=== PATIENT | female | born 1945 | race Caucasian/White ===

== ENCOUNTER 2018-01-06 14:40 | Outpatient (RCR) | payer MEDICARE, OTHER ==
[~2018-01-06 14:40] MED LIST: ASPIR 8181 MG; CRESTOR10 MG PO; GABAPENTIN300 MG PO; GLIPIZIDE5 MG PO; HYDROCHLOROTHIA25 MG; LISINOPRIL2.5 MG; LOSARTAN POTASS25 MG; MELOXICAM7.5 MG PO; METFORMIN HCL500 MG PO; OXYBUTYNIN CHLOR5 M1; TRULICITY SQ; VESICARE5 MG; [UNRECOGNIZED DRUG - REMARK]
== END 2018-02-05 ==
LOC: RESP 14:40
PROVIDERS: ATTEND Internal Medicine Pulmonary Disease
DX: J44.9 Chronic obstructive pulmonary disease, unspecified (principal)
CPT/HCPCS: G0238; G0424

== ENCOUNTER 2021-01-26 13:36 | Inpatient (IN) | payer MEDICARE, OTHER ==
[~2021-01-26] VITALS: Ht 160 cm; Wt 106.1 kg
[2021-01-26 14:22] LABS: BASOPHILS # (AUTO) 0.1 (0.0-0.1); BASOPHILS % 0.3 % (0.0-1.0); EOSINOPHILS # (AUTO) 0.2 (0.0-0.4); EOSINOPHILS % 1.2 % (0.0-6.0); HEMATOCRIT 41.9 % (34.2-44.1); HEMOGLOBIN 13.8 g/dL (12.0-16.0); LYMPHOCYTES # (AUTO) 0.6 (1.0-3.2); LYMPHOCYTES % 4.2 % (18.0-39.1); MEAN CORPUSCULAR HEMOGLOBIN 28.3 pg (28-32); MEAN CORPUSCULAR HGB CONC 32.9 g/dL (31-35); MONOCYTES # (AUTO) 0.5 (0.2-0.8); MONOCYTES % 3.3 % (4.4-11.3); NEUTROPHILS # (AUTO) 13.3 (2.1-6.9); NEUTROPHILS % 90.4 % (38.7-80.0); PLATELET COUNT 253 x10e3/uL (140-360); RED BLOOD COUNT 4.87 x10e6/uL (3.6-5.1); RED CELL DISTRIBUTION WIDTH 14.7 % (11.7-14.4)
[2021-01-26 14:37] LABS: INR 0.93; PROTHROMBIN TIME 12.7 seconds (11.9-14.5)
[2021-01-26 14:38] LABS: PARTIAL THROMBOPLASTIN TIME 29.4 seconds (23.8-35.5)
[2021-01-26 14:56] LABS: ALANINE AMINOTRANSFERASE 14 IU/L (0-55); ALBUMIN 3.6 g/dL (3.5-5.0); ALKALINE PHOSPHATASE 77 IU/L (40-150); ANION GAP 17.8 mmol/L (8-16); BLOOD UREA NITROGEN 10 mg/dL (7-26); BUN/CREATININE RATIO 13 (6-25); CALCIUM 9.6 mg/dL (8.4-10.2); CARBON DIOXIDE 24 mmol/L (22-29); CHLORIDE 97 mmol/L (98-107); CREATINE KINASE 16 IU/L (29-168); CREATININE, SERUM 0.79 mg/dL (0.57-1.11); EST GLOMERULAR FILTRATION RATE 71 ML/MIN (60-); GLUCOSE 164 mg/dL (74-118); MAGNESIUM 1.5 MG/DL (1.3-2.1); POTASSIUM 3.8 mmol/L (3.5-5.1); SODIUM 135 mmol/L (136-145)
[2021-01-26 15:23] LABS: B-TYPE NATRIURETIC PEPTIDE2 25.7 pg/mL (0-100)
[2021-01-26 15:27] LABS: ABG HCO3 28 mmol/L (22-26); ABG PCO2 38 mmHg (35-45); ABG PH 7.47 (7.35-7.45); ABG PO2 59 mmHg (80-105); ABG TCO2 29
[2021-01-26] MEDS ORDERED: [UNRECOGNIZED DRUG - OTHER] PEG (15:38)
[2021-01-26] MEDS ORDERED: [UNRECOGNIZED DRUG - OTHER] PEG (15:38)
[2021-01-26] MEDS ORDERED: SYMBICORT 16010.2 GM INH (15:38)
[2021-01-26] MEDS ORDERED: DICYCLOMINE HCL10 MG PO (15:38)
[2021-01-26] MEDS ORDERED: ENALAPRIL MALE2.5 MG PO (15:38)
[2021-01-26] MEDS ORDERED: [UNRECOGNIZED DRUG - OTHER] PO (15:38)
[2021-01-26 15:53] LABS: CLARITY,URINE CLEAR (CLEAR); COLOR,URINE YELLOW (YELLOW); KETONES,URINE 1+ (NEGATIVE); LEUKOCYTE ESTERASE ,URINE NEGATIVE (NEGATIVE); NITRITE,URINE NEGATIVE (NEGATIVE); PROTEIN,URINE DIPSTICK NEGATIVE (NEGATIVE); URINE UROBILINOGEN 0.2 mg/dL (0.2 - 1)
[2021-01-26 16:12] LABS: BACTERIA,URINE FEW /HPF; EPITHELIAL CELLS,URINE FEW /LPF; MUCUS,URINE MODERATE (RARE); RBC,URINE 0-5 /HPF (0-5)
[2021-01-26] MEDS ORDERED: SODIUM CHLORIDE 0.9% 500ML 500 ML IV ONE (16:15)
[2021-01-26] MEDS ORDERED: CASIRIVIMAB/IMDEVIMAB 10 ML in SODIUM CHLORIDE 0.9% 100 ML IV ONE (16:15)
[2021-01-26] MEDS ORDERED: ASPIRIN 81 MG CHEW TAB ONE (17:54)
[2021-01-26] MEDS ORDERED: ASPIRIN 81 MG CHEW TAB PO ONE (18:00)
[2021-01-26] MEDS ORDERED: DEXTROSE 50% SYRINGE 50 ML IV PRN (18:30)
[2021-01-26] MEDS ORDERED: ONDANSETRON HCL INJ 2MG/ML 2ML 2 MG/ML VIAL IV PRN (18:30)
[2021-01-26] MEDS: CEFTRIAXONE 1 GM in SODIUM CHLORIDE 0.9% 50ML 50 ML IV SCH (18:54)
[2021-01-26] MEDS ORDERED: ACETAMINOPHEN 325 MG TAB PO PRN (22:15)
[2021-01-26] MEDS: FAMOTIDINE 20 MG/2 ML VIAL IV SCH (22:54)
[2021-01-26] MEDS: INSULIN LISPRO 100 UNIT/1 ML 3ML VIAL SQ SCH (22:58)
[2021-01-27] VITALS (10 sets, daily range): BP systolic 112–125; BP diastolic 42–55
[2021-01-27 06:10] LABS: BASOPHILS % 0.3 % (0.0-1.0); EOSINOPHILS % 0.1 % (0.0-6.0); HEMATOCRIT 39.2 % (34.2-44.1); HEMOGLOBIN 12.7 g/dL (12.0-16.0); LYMPHOCYTES # (AUTO) 0.8 (1.0-3.2); LYMPHOCYTES % 7.3 % (18.0-39.1); MEAN CORPUSCULAR HEMOGLOBIN 28.3 pg (28-32); MEAN CORPUSCULAR HGB CONC 32.4 g/dL (31-35); MEAN CORPUSCULAR VOLUME 87.3 fL (81-99); MONOCYTES # (AUTO) 0.5 (0.2-0.8); MONOCYTES % 4.5 % (4.4-11.3); NEUTROPHILS # (AUTO) 9.4 (2.1-6.9); NEUTROPHILS % 87.4 % (38.7-80.0); PLATELET COUNT 217 x10e3/uL (140-360); RED BLOOD COUNT 4.49 x10e6/uL (3.6-5.1); RED CELL DISTRIBUTION WIDTH 14.8 % (11.7-14.4)
[2021-01-27 06:35] LABS: ALBUMIN 3.1 g/dL (3.5-5.0); ALBUMIN/GLOBULIN RATIO 0.9 (0.8-2.0); ANION GAP 15.3 mmol/L (8-16); CALCIUM 9.1 mg/dL (8.4-10.2); CHOL/HDL RATIO 2.8 (3.0-3.6); CREATININE, SERUM 0.79 mg/dL (0.57-1.11); POTASSIUM 3.3 mmol/L (3.5-5.1)
[2021-01-27 06:41] LABS: CREATINE KINASE 27 IU/L (29-168)
[2021-01-27] MEDS: ASPIRIN 81 MG ENTERIC COATED PO SCH (10:23)
[2021-01-27] MEDS: CEFTRIAXONE 1 GM in SODIUM CHLORIDE 0.9% 50ML 50 ML IV SCH (10:23)
[2021-01-27] MEDS: FAMOTIDINE 20 MG/2 ML VIAL IV SCH ×2 (10:23→21:49)
[2021-01-27] MEDS: INSULIN LISPRO 100 UNIT/1 ML 3ML VIAL SQ SCH ×4 (11:02→21:00)
[2021-01-27] MEDS ORDERED: POTASSIUM CHLORIDE 10MEQ EA PO NR (12:45)
[2021-01-27] MEDS: ZINC SULFATE 220 MG CAP PO SCH (13:46)
[2021-01-27] MEDS ORDERED: REMDESIVIR 200MG/NS 100ML 200 MG in SODIUM CHLORIDE 0.9% 100 ML 100 ML IV ONE (14:00)
[2021-01-27] MEDS: BUDESONIDE/FORMOTEROL 160/4.5MCG INHALER INH SCH (17:00)
[2021-01-27] MEDS ORDERED: ENOXAPARIN SOD INJ 40 MG/0.4 ML SYR SC SCH (17:00)
[2021-01-27] MEDS: GLIPIZIDE 5 MG TAB PO SCH (17:46)
[2021-01-27] MEDS: METFORMIN HCL 500 MG TAB PO SCH (17:51)
[2021-01-27] MEDS ORDERED: SIMVASTATIN 40 MG TAB PO SCH (21:00)
[2021-01-28] VITALS: BP 111/57
[2021-01-28 04:00] VITALS: BP 140/70
[2021-01-28 05:35] LABS: BASOPHILS % 0.5 % (0.0-1.0); EOSINOPHILS % 0.2 % (0.0-6.0); HEMATOCRIT 40.6 % (34.2-44.1); HEMOGLOBIN 13.5 g/dL (12.0-16.0); LYMPHOCYTES # (AUTO) 1.3 (1.0-3.2); LYMPHOCYTES % 22.5 % (18.0-39.1); MEAN CORPUSCULAR HEMOGLOBIN 28.8 pg (28-32); MEAN CORPUSCULAR HGB CONC 33.3 g/dL (31-35); MEAN CORPUSCULAR VOLUME 86.6 fL (81-99); MONOCYTES # (AUTO) 0.5 (0.2-0.8); MONOCYTES % 8.2 % (4.4-11.3); NEUTROPHILS % 68.3 % (38.7-80.0); PLATELET COUNT 223 x10e3/uL (140-360); RED BLOOD COUNT 4.69 x10e6/uL (3.6-5.1); RED CELL DISTRIBUTION WIDTH 14.7 % (11.7-14.4)
[2021-01-28 06:17] LABS: ALBUMIN 3.1 g/dL (3.5-5.0); ALBUMIN/GLOBULIN RATIO 0.9 (0.8-2.0); ANION GAP 19.4 mmol/L (8-16); CREATININE, SERUM 0.72 mg/dL (0.57-1.11); POTASSIUM 3.4 mmol/L (3.5-5.1)
[2021-01-28] MEDS: INSULIN LISPRO 100 UNIT/1 ML 3ML VIAL SQ SCH ×3 (07:30→16:17)
[2021-01-28 08:13] VITALS: BP 116/59
[2021-01-28] MEDS: METFORMIN HCL 500 MG TAB PO SCH (08:19)
[2021-01-28] MEDS: ZINC SULFATE 220 MG CAP PO SCH (08:19)
[2021-01-28] MEDS: FAMOTIDINE 20 MG/2 ML VIAL IV SCH (08:19)
[2021-01-28] MEDS: ASPIRIN 81 MG ENTERIC COATED PO SCH (08:19)
[2021-01-28] MEDS: GLIPIZIDE 5 MG TAB PO SCH (08:19)
[2021-01-28] MEDS: CEFTRIAXONE 1 GM in SODIUM CHLORIDE 0.9% 50ML 50 ML IV SCH (08:53)
[2021-01-28] MEDS ORDERED: ASPIRIN 81 MG CHEW TAB PO SCH (09:00)
[2021-01-28] MEDS ORDERED: OXYBUTYNIN CHLORIDE XL 5 MG TAB PO SCH (09:00)
[2021-01-28] MEDS: BUDESONIDE/FORMOTEROL 160/4.5MCG INHALER INH SCH (10:57)
[2021-01-28 10:58] VITALS: BP 116/59
[2021-01-28 12:01] VITALS: BP 122/60
[2021-01-28] MEDS ORDERED: REMDESIVIR 100MG/NS 100ML 100 MG in SODIUM CHLORIDE 0.9% 100 ML 100 ML IV SCH (14:00)
[2021-01-28] MEDS ORDERED: POTASSIUM CHLORIDE 10MEQ EA PO ONE (15:00)
== END 2021-01-28 16:21 | disposition home or self-care (01) | DRG 177 ==
LOC: ER 13:48 → ERHOLD 18:29 → MED/SURG3 23:36
PROVIDERS: ADMIT Internal Medicine; ATTEND Internal Medicine
PROC: XW033H6 Introduction of Other New Technology Monoclonal Antibody into Peripheral Vein, Percutaneous Approach, New Technology Group 6 (ICD-10-PCS; 2021-01-26)
PROC: XW033E5 Introduction of Remdesivir Anti-infective into Peripheral Vein, Percutaneous Approach, New Technology Group 5 (ICD-10-PCS; principal; 2021-01-27)
DX: U07.1 COVID-19 (principal); J12.82 Pneumonia due to coronavirus disease 2019; G93.41 Metabolic encephalopathy; E11.9 Type 2 diabetes mellitus without complications; J44.9 Chronic obstructive pulmonary disease, unspecified; E78.5 Hyperlipidemia, unspecified; M19.90 Unspecified osteoarthritis, unspecified site; E87.6 Hypokalemia; Z90.49 Acquired absence of other specified parts of digestive tract; Z88.2 Allergy status to sulfonamides; Z88.8 Allergy status to other drugs, medicaments and biological substances
CPT/HCPCS: 36415; 36600; 70450; 70551; 71045; 80053; 80061; 81001; 82140; 82550; 82553; 82805; 82948; 83735; 83880; 84484; 85025; 85610; 85730; 87086; 93005; 93306; 93880; 94664; 96372; 99251; 99284; J0456; J0696; J1650; J7050; U0002

== ENCOUNTER 2021-02-25 14:35 | Emergency (ER) | payer MEDICARE, OTHER ==
[~2021-02-25] VITALS: Ht 160 cm; Wt 106.1 kg
[~2021-02-25 14:35] MED LIST changes: +DICYCLOMINE HCL10 MG PO; +ENALAPRIL MALE2.5 MG PO; +SYMBICORT 16010.2 GM INH; +[UNRECOGNIZED DRUG - OTHER] PEG; +[UNRECOGNIZED DRUG - OTHER] PEG; +[UNRECOGNIZED DRUG - OTHER] PO
[2021-02-25] MEDS ORDERED: SODIUM CHLORIDE 0.9% 1000ML 1,000 ML IV STA (15:14)
[2021-02-25] MEDS ORDERED: ALBUTEROL SULFATE HFA 8GM INHALATION AEROSOL INH PRN (15:15)
[2021-02-25] MEDS ORDERED: ASPIRIN 81 MG CHEW TAB PO ONE (15:15)
[2021-02-25 15:34] LABS: BASOPHILS # (AUTO) 0.1 (0.0-0.1); BASOPHILS % 0.3 % (0.0-1.0); EOSINOPHILS # (AUTO) 0.2 (0.0-0.4); EOSINOPHILS % 1.1 % (0.0-6.0); HEMATOCRIT 42.5 % (34.2-44.1); HEMOGLOBIN 13.7 g/dL (12.0-16.0); LYMPHOCYTES # (AUTO) 2.1 (1.0-3.2); LYMPHOCYTES % 11.7 % (18.0-39.1); MEAN CORPUSCULAR HEMOGLOBIN 27.9 pg (28-32); MEAN CORPUSCULAR HGB CONC 32.2 g/dL (31-35); MEAN CORPUSCULAR VOLUME 86.6 fL (81-99); MONOCYTES # (AUTO) 0.7 (0.2-0.8); NEUTROPHILS # (AUTO) 14.4 (2.1-6.9); NEUTROPHILS % 82.3 % (38.7-80.0); PLATELET COUNT 280 x10e3/uL (140-360); RED BLOOD COUNT 4.91 x10e6/uL (3.6-5.1)
[2021-02-25 15:40] LABS: INR 0.91; PROTHROMBIN TIME 12.4 seconds (11.9-14.5)
[2021-02-25 15:41] LABS: PARTIAL THROMBOPLASTIN TIME 27.5 seconds (23.8-35.5)
[2021-02-25 15:49] LABS: ALBUMIN 3.3 g/dL (3.5-5.0); ALBUMIN/GLOBULIN RATIO 0.9 (0.8-2.0); CALCIUM 9.4 mg/dL (8.4-10.2); CREATININE, SERUM 0.75 mg/dL (0.57-1.11)
[2021-02-25 15:56] LABS: CREATINE KINASE MB 0.4 ng/mL (0-5.0)
[2021-02-25 16:08] LABS: FREE THYROXINE INDEX 2.2822 (1.4-3.8); THYROID STIMULATING HORMONE 1.705 uIU/mL (0.350-4.940)
[2021-02-25] MEDS ORDERED: CEFTRIAXONE 1 GM VIAL IV ONE (20:00)
[2021-02-25] MEDS ORDERED: CEFTRIAXONE 1 GM in SODIUM CHLORIDE 0.9% 50ML 50 ML IV ONE (20:30)
[2021-02-25 21:31] LABS: CLARITY,URINE SL CLOUDY (CLEAR); COLOR,URINE STRAW (YELLOW); KETONES,URINE 1+ (NEGATIVE); LEUKOCYTE ESTERASE ,URINE NEGATIVE (NEGATIVE); NITRITE,URINE NEGATIVE (NEGATIVE); PROTEIN,URINE DIPSTICK TRACE (NEGATIVE); URINE UROBILINOGEN 0.2 mg/dL (0.2 - 1)
[2021-02-25 21:42] LABS: BACTERIA,URINE FEW /HPF; EPITHELIAL CELLS,URINE FEW /LPF; RBC,URINE 0-5 /HPF (0-5); WBC,URINE (MAN) 0-5 /HPF (0-5)
== END 2021-02-25 22:30 | disposition home or self-care (01) ==
LOC: ER 15:20
DX: R41.82 Altered mental status, unspecified (principal); D72.829 Elevated white blood cell count, unspecified; R05 Cough; J18.9 Pneumonia, unspecified organism; E11.65 Type 2 diabetes mellitus with hyperglycemia; E78.5 Hyperlipidemia, unspecified; J44.9 Chronic obstructive pulmonary disease, unspecified
CPT/HCPCS: 36415; 70450; 71045; 80053; 81001; 82550; 82553; 83880; 84436; 84443; 84479; 84484; 85025; 85610; 85730; 87086; 93005; 99284; J0696; J7030

== ENCOUNTER 2021-05-15 16:58 | Inpatient (IN) | payer MEDICARE, OTHER ==
[~2021-05-15] VITALS: Ht 160 cm; Wt 106.1 kg
[2021-05-15 17:25] LABS: BASOPHILS # (AUTO) 0.1 (0.0-0.1); BASOPHILS % 0.7 % (0.0-1.0); EOSINOPHILS # (AUTO) 0.3 (0.0-0.4); EOSINOPHILS % 3.1 % (0.0-6.0); HEMATOCRIT 44.3 % (34.2-44.1); HEMOGLOBIN 14.3 g/dL (12.0-16.0); LYMPHOCYTES # (AUTO) 2.5 (1.0-3.2); LYMPHOCYTES % 23.3 % (18.0-39.1); MEAN CORPUSCULAR HEMOGLOBIN 28.6 pg (28-32); MEAN CORPUSCULAR HGB CONC 32.3 g/dL (31-35); MEAN CORPUSCULAR VOLUME 88.6 fL (81-99); MONOCYTES # (AUTO) 0.7 (0.2-0.8); MONOCYTES % 6.4 % (4.4-11.3); NEUTROPHILS % 66.3 % (38.7-80.0); PLATELET COUNT 302 x10e3/uL (140-360); RED CELL DISTRIBUTION WIDTH 14.6 % (11.7-14.4)
[2021-05-15 17:38] LABS: INR 0.81; PROTHROMBIN TIME 11.8 seconds (11.9-14.5)
[2021-05-15 17:39] LABS: PARTIAL THROMBOPLASTIN TIME 28.3 seconds (23.8-35.5)
[2021-05-15 17:48] LABS: ALBUMIN 3.8 g/dL (3.5-5.0); ALBUMIN/GLOBULIN RATIO 1.1 (0.8-2.0); ANION GAP 15.9 mmol/L (8-16); CALCIUM 9.8 mg/dL (8.4-10.2); CREATININE, SERUM 0.8 mg/dL (0.57-1.11); POTASSIUM 3.9 mmol/L (3.5-5.1)
[2021-05-15 17:54] LABS: CREATINE KINASE MB 0.7 ng/mL (0-5.0)
[2021-05-15] MEDS ORDERED: ASPIRIN 81 MG CHEW TAB PO ONE (19:00)
[2021-05-15] MEDS ORDERED: ONDANSETRON HCL INJ 2MG/ML 2ML 2 MG/ML VIAL IV PRN (19:15)
[2021-05-15] MEDS ORDERED: DEXTROSE 50% SYRINGE 50 ML IV PRN (19:15)
[2021-05-15] MEDS ORDERED: SODIUM CHLORIDE FLUSH 10 ML SYR INJ PRN (19:15)
[2021-05-15 20:26] VITALS: BP 135/53
[2021-05-15] MEDS: INSULIN REGULAR, HUMAN 100 UNIT/1 ML SQ SCH (21:00)
[2021-05-15 22:08] VITALS: BP 135/53
[2021-05-16] VITALS (8 sets, daily range): BP systolic 105–160; BP diastolic 45–88
[2021-05-16 02:04] LABS: CREATINE KINASE MB 0.7 ng/mL (0-5.0)
[2021-05-16] MEDS ORDERED: ACETAMINOPHEN 325 MG TAB PO PRN (06:00)
[2021-05-16 06:12] LABS: BASOPHILS # (AUTO) 0.1 (0.0-0.1); BASOPHILS % 0.7 % (0.0-1.0); EOSINOPHILS # (AUTO) 0.2 (0.0-0.4); HEMATOCRIT 43.6 % (34.2-44.1); HEMOGLOBIN 14.2 g/dL (12.0-16.0); MEAN CORPUSCULAR HEMOGLOBIN 28.5 pg (28-32); MEAN CORPUSCULAR HGB CONC 32.6 g/dL (31-35); MEAN CORPUSCULAR VOLUME 87.4 fL (81-99); MONOCYTES # (AUTO) 0.6 (0.2-0.8); MONOCYTES % 5.6 % (4.4-11.3); NEUTROPHILS # (AUTO) 7.4 (2.1-6.9); NEUTROPHILS % 72.3 % (38.7-80.0); PLATELET COUNT 236 x10e3/uL (140-360); RED BLOOD COUNT 4.99 x10e6/uL (3.6-5.1); RED CELL DISTRIBUTION WIDTH 14.3 % (11.7-14.4)
[2021-05-16 07:16] LABS: ALBUMIN 3.8 g/dL (3.5-5.0); ALBUMIN/GLOBULIN RATIO 1.2 (0.8-2.0); ANION GAP 17.2 mmol/L (8-16); CALCIUM 9.4 mg/dL (8.4-10.2); CREATININE, SERUM 0.82 mg/dL (0.57-1.11); POTASSIUM 4.2 mmol/L (3.5-5.1)
[2021-05-16] MEDS: ASPIRIN 325 MG TAB EC PO SCH (08:47)
[2021-05-16] MEDS: INSULIN REGULAR, HUMAN 100 UNIT/1 ML SQ SCH ×4 (08:53→21:00)
[2021-05-16] MEDS: [UNRECOGNIZED DRUG - OTHER] PO SCH (09:00)
[2021-05-16] MEDS: ALA PO SCH (09:00)
[2021-05-16] MEDS: GLIPIZIDE 5 MG TAB PO SCH ×2 (09:00→16:06)
[2021-05-16] MEDS: [UNRECOGNIZED DRUG - OTHER] PEG SCH (09:00)
[2021-05-16] MEDS: MILK THISTLE PO SCH (09:00)
[2021-05-16] MEDS: [UNRECOGNIZED DRUG - OTHER] PEG SCH (09:00)
[2021-05-16] MEDS ORDERED: ASPIRIN 81 MG CHEW TAB PO SCH (09:00)
[2021-05-16] MEDS: NAC PO SCH (09:00)
[2021-05-16 09:16] LABS: CREATINE KINASE MB 0.6 ng/mL (0-5.0)
[2021-05-16] MEDS ORDERED: HYDRALAZINE HCL 20 MG/ML VIAL IV PRN (09:45)
[2021-05-16] MEDS ORDERED: GABAPENTIN 300 MG CAP PO SCH (10:00)
[2021-05-16] MEDS: DICYCLOMINE HCL 10 MG CAP PO SCH ×2 (10:27→16:06)
[2021-05-16] MEDS: ENALAPRIL MALEATE 5 MG TAB PO SCH (10:27)
[2021-05-16] MEDS: OXYBUTYNIN CHLORIDE XL 5 MG TAB PO SCH (10:28)
[2021-05-16] MEDS: HYDROCHLOROTHIAZIDE 25 MG TAB PO SCH (10:28)
[2021-05-16] MEDS ORDERED: METFORMIN HCL 500 MG TAB PO SCH (11:00)
[2021-05-16] MEDS: BUDESONIDE/FORMOTEROL 160/4.5MCG INHALER INH SCH ×2 (14:45→20:25)
[2021-05-16] MEDS ORDERED: SIMVASTATIN 20 MG TAB PO SCH (21:00)
[2021-05-16] MEDS ORDERED: ATORVASTATIN 40 MG TAB PO SCH (21:00)
[2021-05-17] VITALS: BP 122/42
[2021-05-17 04:00] VITALS: BP_SYST 125; BP_SYST 134; BP_DIAS 74
[2021-05-17] MEDS: BUDESONIDE/FORMOTEROL 160/4.5MCG INHALER INH SCH (07:30)
[2021-05-17 07:46] VITALS: BP 144/70
[2021-05-17 08:04] VITALS: BP 144/70
[2021-05-17] MEDS ORDERED: ONDANSETRON HCL 4 MG ORAL DISINTEGRATING TAB PO PRN (08:30)
[2021-05-17] MEDS: [UNRECOGNIZED DRUG - OTHER] PEG SCH (09:00)
[2021-05-17] MEDS: ALA PO SCH (09:00)
[2021-05-17] MEDS: [UNRECOGNIZED DRUG - OTHER] PEG SCH (09:00)
[2021-05-17] MEDS: [UNRECOGNIZED DRUG - OTHER] PO SCH (09:00)
[2021-05-17] MEDS: MILK THISTLE PO SCH (09:00)
[2021-05-17] MEDS: NAC PO SCH (09:00)
[2021-05-17] MEDS: DICYCLOMINE HCL 10 MG CAP PO SCH (09:30)
[2021-05-17] MEDS: HYDROCHLOROTHIAZIDE 25 MG TAB PO SCH (09:30)
[2021-05-17] MEDS: OXYBUTYNIN CHLORIDE XL 5 MG TAB PO SCH (09:30)
[2021-05-17] MEDS: ENALAPRIL MALEATE 5 MG TAB PO SCH (09:30)
[2021-05-17] MEDS: ASPIRIN 325 MG TAB EC PO SCH (09:30)
[2021-05-17] MEDS: GLIPIZIDE 5 MG TAB PO SCH (09:30)
[2021-05-17] MEDS: INSULIN REGULAR, HUMAN 100 UNIT/1 ML SQ SCH ×2 (09:37→12:17)
[2021-05-17 11:11] VITALS: BP 133/69
== END 2021-05-17 13:35 | disposition home or self-care (01) | DRG 69 ==
LOC: ER 17:10 → ERHOLD 19:07 → MED/SURG 20:46
PROVIDERS: ADMIT Internal Medicine; ATTEND Internal Medicine
DX: G45.9 Transient cerebral ischemic attack, unspecified (principal); Z68.41 Body mass index [BMI] 40.0-44.9, adult; I10 Essential (primary) hypertension; J44.9 Chronic obstructive pulmonary disease, unspecified; E11.9 Type 2 diabetes mellitus without complications; E66.9 Obesity, unspecified; Z86.16 Personal history of COVID-19
CPT/HCPCS: 36415; 70450; 70544; 70547; 70551; 71045; 80053; 82550; 82553; 82948; 84484; 85025; 85610; 85730; 93005; 93306; 94664; 94799; 97139; 99284; J1817; U0002

== ENCOUNTER 2021-10-08 05:34 | Emergency (ER) | payer MEDICARE ==
[~2021-10-08] VITALS: Ht 160 cm; Wt 106.1 kg
[2021-10-08] MEDS ORDERED: FLEET ENEMA133 ML PR (05:52)
[2021-10-08] MEDS ORDERED: GOLYTELY SOLU4000 M1 PO (05:52)
== END 2021-10-08 06:01 | disposition home or self-care (01) ==
LOC: ER 05:43
DX: K59.00 Constipation, unspecified (principal); I10 Essential (primary) hypertension; E11.9 Type 2 diabetes mellitus without complications; E78.5 Hyperlipidemia, unspecified; J44.9 Chronic obstructive pulmonary disease, unspecified; J45.909 Unspecified asthma, uncomplicated
CPT/HCPCS: 99283

== ENCOUNTER 2021-12-07 01:04 | Inpatient (IN) | payer MEDICARE ==
[2021-12-07] VITALS (8 sets, daily range): BP systolic 122–132; BP diastolic 51–63
[~2021-12-07] VITALS: Ht 160 cm; Wt 106.1 kg
[~2021-12-07 01:04] MED LIST changes: +FLEET ENEMA133 ML PR; +GOLYTELY SOLU4000 M1 PO
[2021-12-07 01:50] LABS: CLARITY,URINE CLOUDY (CLEAR); COLOR,URINE YELLOW (YELLOW); KETONES,URINE 2+ (NEGATIVE); LEUKOCYTE ESTERASE ,URINE NEGATIVE (NEGATIVE); NITRITE,URINE NEGATIVE (NEGATIVE); PROTEIN,URINE DIPSTICK TRACE (NEGATIVE); URINE UROBILINOGEN 0.2 mg/dL (0.2 - 1)
[2021-12-07 02:14] LABS: BASOPHILS # (AUTO) 0.1 (0.0-0.1); BASOPHILS % 0.3 % (0.0-1.0); EOSINOPHILS # (AUTO) 0.5 (0.0-0.4); EOSINOPHILS % 2.9 % (0.0-6.0); HEMOGLOBIN 13.7 g/dL (12.0-16.0); LYMPHOCYTES # (AUTO) 0.4 (1.0-3.2); LYMPHOCYTES % 2.7 % (18.0-39.1); MEAN CORPUSCULAR HGB CONC 31.1 g/dL (31-35); MONOCYTES # (AUTO) 0.8 (0.2-0.8); NEUTROPHILS # (AUTO) 13.6 (2.1-6.9); NEUTROPHILS % 88.6 % (38.7-80.0); PLATELET COUNT 259 x10e3/uL (140-360); RED BLOOD COUNT 4.73 x10e6/uL (3.6-5.1); RED CELL DISTRIBUTION WIDTH 14.2 % (11.7-14.4)
[2021-12-07 02:14] LABS: BACTERIA,URINE MANY /HPF; EPITHELIAL CELLS,URINE FEW /LPF; WBC,URINE (MAN) 0-5 /HPF (0-5)
[2021-12-07 02:31] LABS: ALANINE AMINOTRANSFERASE 27 IU/L (0-55); ALBUMIN 3.5 g/dL (3.5-5.0); ALKALINE PHOSPHATASE 87 IU/L (40-150); BLOOD UREA NITROGEN 21 mg/dL (7-26); BUN/CREATININE RATIO 19 (6-25); CALCIUM 9.1 mg/dL (8.4-10.2); CARBON DIOXIDE 23 mmol/L (22-29); CREATINE KINASE 25 IU/L (29-168); GLUCOSE 305 mg/dL (74-118)
[2021-12-07 02:41] LABS: ANION GAP 17.3 mmol/L (8-16); CHLORIDE 101 mmol/L (98-107); POTASSIUM 4.3 mmol/L (3.5-5.1); SODIUM 139 mmol/L (136-145)
[2021-12-07] MEDS ORDERED: SODIUM CHLORIDE 0.9% 1000ML 1,000 ML IV STA (03:29)
[2021-12-07] MEDS ORDERED: ONDANSETRON HCL INJ 2MG/ML 2ML 2 MG/ML VIAL IV PRN (04:15)
[2021-12-07] MEDS ORDERED: Morphine 4mg INJECTION 4 MG/ML INJ IV PRN (04:15)
[2021-12-07] MEDS: SODIUM CHLORIDE 0.9% 1000ML 1,000 ML IV SCH ×3 (04:15→21:36)
[2021-12-07 10:12] LABS: CREATINE KINASE 59 IU/L (29-168)
[2021-12-07] MEDS ORDERED: DEXTROSE 50% SYRINGE 50 ML IV PRN (10:15)
[2021-12-07] MEDS ORDERED: HYDRALAZINE HCL 20 MG/ML VIAL IV PRN (10:30)
[2021-12-07] MEDS ORDERED: POLYETHYLENE GLYCOL 3350 17 GM PACK PO PRN (10:30)
[2021-12-07] MEDS ORDERED: Morphine 2mg Syringe 2 MG/ML SYR IV PRN (10:30)
[2021-12-07] MEDS: Vancomycin IV 1 GM in SODIUM CHLORIDE 0.9% 250ML 250 ML IV SCH ×2 (10:46→21:36)
[2021-12-07] MEDS: PANTOPRAZOLE SOD 40 MG TABEC PO SCH (10:46)
[2021-12-07] MEDS: ASPIRIN 81 MG ENTERIC COATED PO SCH (10:47)
[2021-12-07] MEDS: HYDROCHLOROTHIAZIDE 25 MG TAB PO SCH (10:47)
[2021-12-07] MEDS: OXYBUTYNIN CHLORIDE XL 5 MG TAB PO SCH (10:47)
[2021-12-07] MEDS: INSULIN LISPRO 100 UNIT/1 ML 3ML VIAL SQ SCH ×3 (11:30→21:31)
[2021-12-07] MEDS: ALBUTEROL/IPRATROPIUM 3 ML NEB NEB SCH ×2 (11:42→19:10)
[2021-12-07] MEDS ORDERED: SODIUM CHLORIDE 0.9% 500ML 500 ML IV ONE (12:00)
[2021-12-07] MEDS: ENALAPRIL MALEATE 5 MG TAB PO SCH (13:32)
[2021-12-07 15:47] LABS: CREATINE KINASE 118 IU/L (29-168)
[2021-12-07] MEDS: GABAPENTIN 300 MG CAP PO SCH ×2 (15:47→21:36)
[2021-12-07] MEDS: ENOXAPARIN SOD INJ 40 MG/0.4 ML SYR SC SCH (16:39)
[2021-12-07] MEDS: CRESTOR 10MG PO SCH (21:37)
[2021-12-08] VITALS (8 sets, daily range): BP systolic 115–139; BP diastolic 51–85
[2021-12-08] MEDS: ALBUTEROL/IPRATROPIUM 3 ML NEB NEB SCH ×4 (01:00→19:15)
[2021-12-08] MEDS: SODIUM CHLORIDE 0.9% 1000ML 1,000 ML IV SCH (04:51)
[2021-12-08 07:09] LABS: BASOPHILS # (AUTO) 0.1 (0.0-0.1); BASOPHILS % 0.8 % (0.0-1.0); EOSINOPHILS % 10.2 % (0.0-6.0); HEMATOCRIT 40.8 % (34.2-44.1); HEMOGLOBIN 12.6 g/dL (12.0-16.0); LYMPHOCYTES # (AUTO) 2.1 (1.0-3.2); LYMPHOCYTES % 20.5 % (18.0-39.1); MEAN CORPUSCULAR HEMOGLOBIN 29.1 pg (28-32); MEAN CORPUSCULAR HGB CONC 30.9 g/dL (31-35); MEAN CORPUSCULAR VOLUME 94.2 fL (81-99); MONOCYTES # (AUTO) 0.7 (0.2-0.8); MONOCYTES % 7.3 % (4.4-11.3); NEUTROPHILS # (AUTO) 6.1 (2.1-6.9); NEUTROPHILS % 60.8 % (38.7-80.0); PLATELET COUNT 233 x10e3/uL (140-360); RED BLOOD COUNT 4.33 x10e6/uL (3.6-5.1); RED CELL DISTRIBUTION WIDTH 14.5 % (11.7-14.4)
[2021-12-08] MEDS: INSULIN LISPRO 100 UNIT/1 ML 3ML VIAL SQ SCH ×4 (07:30→20:07)
[2021-12-08 07:42] LABS: ALBUMIN 2.9 g/dL (3.5-5.0); ALBUMIN/GLOBULIN RATIO 0.9 (0.8-2.0); ANION GAP 15.5 mmol/L (8-16); CALCIUM 8.3 mg/dL (8.4-10.2); CREATININE, SERUM 0.8 mg/dL (0.57-1.11); POTASSIUM 3.5 mmol/L (3.5-5.1)
[2021-12-08] MEDS: Vancomycin IV 1 GM in SODIUM CHLORIDE 0.9% 250ML 250 ML IV SCH (08:48)
[2021-12-08] MEDS: PANTOPRAZOLE SOD 40 MG TABEC PO SCH (08:48)
[2021-12-08] MEDS: HYDROCHLOROTHIAZIDE 25 MG TAB PO SCH (08:49)
[2021-12-08] MEDS: OXYBUTYNIN CHLORIDE XL 5 MG TAB PO SCH (08:49)
[2021-12-08] MEDS: ASPIRIN 81 MG ENTERIC COATED PO SCH (08:49)
[2021-12-08] MEDS: GABAPENTIN 300 MG CAP PO SCH ×3 (08:50→20:09)
[2021-12-08] MEDS: ENALAPRIL MALEATE 5 MG TAB PO SCH (08:51)
[2021-12-08] MEDS: GLIPIZIDE 5 MG TAB PO SCH (16:37)
[2021-12-08] MEDS: ENOXAPARIN SOD INJ 40 MG/0.4 ML SYR SC SCH (16:37)
[2021-12-08] MEDS: CRESTOR 10MG PO SCH (20:09)
[2021-12-09] VITALS: BP 117/60
[2021-12-09] MEDS: ALBUTEROL/IPRATROPIUM 3 ML NEB NEB SCH ×2 (01:00→06:44)
[2021-12-09 04:00] VITALS: BP 110/58
[2021-12-09 06:33] LABS: BASOPHILS # (AUTO) 0.1 (0.0-0.1); BASOPHILS % 0.9 % (0.0-1.0); EOSINOPHILS % 11.5 % (0.0-6.0); HEMATOCRIT 38.1 % (34.2-44.1); HEMOGLOBIN 12.2 g/dL (12.0-16.0); LYMPHOCYTES # (AUTO) 1.9 (1.0-3.2); LYMPHOCYTES % 22.6 % (18.0-39.1); MEAN CORPUSCULAR HEMOGLOBIN 29.1 pg (28-32); MEAN CORPUSCULAR VOLUME 90.9 fL (81-99); MONOCYTES # (AUTO) 0.7 (0.2-0.8); MONOCYTES % 7.8 % (4.4-11.3); NEUTROPHILS # (AUTO) 4.9 (2.1-6.9); NEUTROPHILS % 56.7 % (38.7-80.0); PLATELET COUNT 251 x10e3/uL (140-360); RED BLOOD COUNT 4.19 x10e6/uL (3.6-5.1); RED CELL DISTRIBUTION WIDTH 14.3 % (11.7-14.4)
[2021-12-09 06:55] LABS: ANION GAP 13.8 mmol/L (8-16); CALCIUM 9.1 mg/dL (8.4-10.2); CREATININE, SERUM 0.79 mg/dL (0.57-1.11); POTASSIUM 3.8 mmol/L (3.5-5.1)
[2021-12-09 07:46] VITALS: BP 141/42
[2021-12-09 08:11] VITALS: BP 141/42
[2021-12-09] MEDS: INSULIN LISPRO 100 UNIT/1 ML 3ML VIAL SQ SCH (08:20)
[2021-12-09] MEDS: ASPIRIN 81 MG ENTERIC COATED PO SCH (08:24)
[2021-12-09] MEDS: PANTOPRAZOLE SOD 40 MG TABEC PO SCH (08:24)
[2021-12-09] MEDS: GLIPIZIDE 5 MG TAB PO SCH (08:24)
[2021-12-09] MEDS: OXYBUTYNIN CHLORIDE XL 5 MG TAB PO SCH (08:25)
[2021-12-09] MEDS: GABAPENTIN 300 MG CAP PO SCH (08:25)
[2021-12-09] MEDS: HYDROCHLOROTHIAZIDE 25 MG TAB PO SCH (08:25)
[2021-12-09] MEDS: ENALAPRIL MALEATE 5 MG TAB PO SCH (08:26)
[2021-12-09] MEDS ORDERED: AUGMENTIN 500-1 EACH PO (11:32)
[2021-12-09 11:54] VITALS: BP 123/61
== END 2021-12-09 12:44 | disposition home or self-care (01) | DRG 872 ==
LOC: ER 01:10 → ERHOLD 04:17 → MED/SURG3 08:28
PROVIDERS: ADMIT Internal Medicine; ATTEND Internal Medicine
DX: A41.9 Sepsis, unspecified organism (principal); N39.0 Urinary tract infection, site not specified; E87.2 Acidosis; R65.20 Severe sepsis without septic shock; I10 Essential (primary) hypertension; E78.5 Hyperlipidemia, unspecified; J44.9 Chronic obstructive pulmonary disease, unspecified; E11.42 Type 2 diabetes mellitus with diabetic polyneuropathy; E11.65 Type 2 diabetes mellitus with hyperglycemia; Z86.73 Personal history of transient ischemic attack (TIA), and cerebral infarction without residual deficits; Z88.2 Allergy status to sulfonamides; Z79.82 Long term (current) use of aspirin; Z79.84 Long term (current) use of oral hypoglycemic drugs; Z20.822 Contact with and (suspected) exposure to COVID-19
CPT/HCPCS: 36415; 70450; 71045; 80048; 80053; 81001; 82550; 82553; 82948; 83036; 83605; 84443; 84484; 85025; 87040; 87086; 93005; 94640; 94799; 96372; 99284; J1650; J2543; J3370; J7030; J7050

== ENCOUNTER 2021-12-11 18:21 | Observation (INO) | payer MEDICARE ==
[~2021-12-11] VITALS: Ht 160 cm; Wt 101.3 kg
[~2021-12-11 18:21] MED LIST changes: +AUGMENTIN 500-1 EACH PO
[2021-12-11] MEDS ORDERED: SODIUM CHLORIDE 0.9% 1000ML 1,000 ML IV ONE ×2 (18:30→21:45)
[2021-12-11 19:06] LABS: BASOPHILS % 0.3 % (0.0-1.0); EOSINOPHILS # (AUTO) 0.3 (0.0-0.4); EOSINOPHILS % 2.2 % (0.0-6.0); HEMATOCRIT 40.3 % (34.2-44.1); HEMOGLOBIN 12.9 g/dL (12.0-16.0); LYMPHOCYTES # (AUTO) 0.3 (1.0-3.2); LYMPHOCYTES % 2.2 % (18.0-39.1); MEAN CORPUSCULAR HEMOGLOBIN 29.2 pg (28-32); MEAN CORPUSCULAR VOLUME 91.2 fL (81-99); MONOCYTES # (AUTO) 0.4 (0.2-0.8); MONOCYTES % 2.7 % (4.4-11.3); NEUTROPHILS # (AUTO) 14.2 (2.1-6.9); NEUTROPHILS % 92.1 % (38.7-80.0); PLATELET COUNT 283 x10e3/uL (140-360); RED BLOOD COUNT 4.42 x10e6/uL (3.6-5.1); RED CELL DISTRIBUTION WIDTH 14.5 % (11.7-14.4)
[2021-12-11 19:12] LABS: CLARITY,URINE SL CLOUDY (CLEAR); COLOR,URINE AMBER (YELLOW); KETONES,URINE 2+ (NEGATIVE); LEUKOCYTE ESTERASE ,URINE NEGATIVE (NEGATIVE); NITRITE,URINE NEGATIVE (NEGATIVE); PROTEIN,URINE DIPSTICK 2+ (NEGATIVE); URINE UROBILINOGEN 0.2 mg/dL (0.2 - 1)
[2021-12-11 19:21] LABS: ALBUMIN 2.7 g/dL (3.5-5.0); ALBUMIN/GLOBULIN RATIO 0.7 (0.8-2.0); ANION GAP 19.7 mmol/L (8-16); CALCIUM 9.1 mg/dL (8.4-10.2); CREATININE, SERUM 1.07 mg/dL (0.57-1.11); POTASSIUM 3.7 mmol/L (3.5-5.1)
[2021-12-11 19:22] LABS: BACTERIA,URINE MANY /HPF
[2021-12-11 19:29] LABS: CREATINE KINASE MB 3.4 ng/mL (0-5.0)
[2021-12-11] MEDS ORDERED: ALBUTEROL/IPRATROPIUM 3 ML NEB NEB PRN (21:45)
[2021-12-11] MEDS ORDERED: ONDANSETRON HCL INJ 2MG/ML 2ML 2 MG/ML VIAL IV PRN (21:45)
[2021-12-11] MEDS ORDERED: DEXTROSE 50% SYRINGE 50 ML IV PRN (21:45)
[2021-12-11] MEDS ORDERED: ACETAMINOPHEN 325 MG TAB PO PRN (21:45)
[2021-12-11] MEDS: GABAPENTIN 300 MG CAP PO SCH (22:15)
[2021-12-12] VITALS (8 sets, daily range): BP systolic 99–122; BP diastolic 50–88
[2021-12-12] MEDS ORDERED: SODIUM CHLORIDE 0.9% 1000ML 1,000 ML ONE (05:16)
[2021-12-12] MEDS: MEROPENEM 1 GM in SODIUM CHLORIDE 0.9% 100 ML IV SCH ×3 (05:31→21:11)
[2021-12-12 06:49] LABS: BASOPHILS # (AUTO) 0.1 (0.0-0.1); BASOPHILS % 0.4 % (0.0-1.0); EOSINOPHILS # (AUTO) 0.8 (0.0-0.4); HEMATOCRIT 36.2 % (34.2-44.1); HEMOGLOBIN 11.6 g/dL (12.0-16.0); LYMPHOCYTES # (AUTO) 1.3 (1.0-3.2); LYMPHOCYTES % 11.4 % (18.0-39.1); MEAN CORPUSCULAR HEMOGLOBIN 28.9 pg (28-32); MONOCYTES # (AUTO) 0.5 (0.2-0.8); NEUTROPHILS # (AUTO) 8.8 (2.1-6.9); NEUTROPHILS % 76.5 % (38.7-80.0); PLATELET COUNT 251 x10e3/uL (140-360); RED BLOOD COUNT 4.02 x10e6/uL (3.6-5.1); RED CELL DISTRIBUTION WIDTH 14.6 % (11.7-14.4)
[2021-12-12 07:13] LABS: ALBUMIN 2.6 g/dL (3.5-5.0); ALBUMIN/GLOBULIN RATIO 0.8 (0.8-2.0); ANION GAP 11.4 mmol/L (8-16); CALCIUM 8.9 mg/dL (8.4-10.2); CREATININE, SERUM 0.85 mg/dL (0.57-1.11); POTASSIUM 3.4 mmol/L (3.5-5.1)
[2021-12-12] MEDS: INSULIN REGULAR, HUMAN 100 UNIT/1 ML SQ SCH ×4 (07:30→21:00)
[2021-12-12] MEDS ORDERED: SIMVASTATIN 20 MG TAB PO SCH (09:00)
[2021-12-12] MEDS: ASPIRIN 81 MG CHEW TAB PO SCH (10:37)
[2021-12-12] MEDS: GLIPIZIDE 5 MG TAB PO SCH ×2 (10:37→16:45)
[2021-12-12] MEDS: OXYBUTYNIN CHLORIDE XL 5 MG TAB PO SCH (10:38)
[2021-12-12] MEDS: GABAPENTIN 300 MG CAP PO SCH ×3 (10:38→21:11)
[2021-12-12] MEDS: METFORMIN HCL 500 MG TAB PO SCH ×2 (10:39→16:44)
[2021-12-12] MEDS: HYDROCHLOROTHIAZIDE 25 MG TAB PO SCH (10:39)
[2021-12-12] MEDS: ENALAPRIL MALEATE 5 MG TAB PO SCH (10:40)
[2021-12-12] MEDS ORDERED: POTASSIUM CHLORIDE 10MEQ EA PO ONE (15:45)
[2021-12-13] VITALS: BP 106/60
[2021-12-13 04:00] VITALS: BP 114/58
[2021-12-13] MEDS: MEROPENEM 1 GM in SODIUM CHLORIDE 0.9% 100 ML IV SCH (05:39)
[2021-12-13 06:21] LABS: BASOPHILS # (AUTO) 0.1 (0.0-0.1); BASOPHILS % 0.8 % (0.0-1.0); EOSINOPHILS % 13.3 % (0.0-6.0); HEMATOCRIT 36.3 % (34.2-44.1); HEMOGLOBIN 11.5 g/dL (12.0-16.0); LYMPHOCYTES # (AUTO) 1.5 (1.0-3.2); LYMPHOCYTES % 20.7 % (18.0-39.1); MEAN CORPUSCULAR HEMOGLOBIN 28.8 pg (28-32); MEAN CORPUSCULAR HGB CONC 31.7 g/dL (31-35); MONOCYTES # (AUTO) 0.4 (0.2-0.8); NEUTROPHILS # (AUTO) 4.3 (2.1-6.9); NEUTROPHILS % 57.8 % (38.7-80.0); PLATELET COUNT 275 x10e3/uL (140-360); RED BLOOD COUNT 3.99 x10e6/uL (3.6-5.1); RED CELL DISTRIBUTION WIDTH 14.3 % (11.7-14.4)
[2021-12-13 07:13] LABS: ANION GAP 13.8 mmol/L (8-16); CALCIUM 8.4 mg/dL (8.4-10.2); CREATININE, SERUM 0.78 mg/dL (0.57-1.11); POTASSIUM 3.8 mmol/L (3.5-5.1)
[2021-12-13 07:44] VITALS: BP 128/57
[2021-12-13 08:49] VITALS: BP 128/57
[2021-12-13 08:50] VITALS: BP 128/57
[2021-12-13 08:51] VITALS: BP 128/57
[2021-12-13] MEDS: OXYBUTYNIN CHLORIDE XL 5 MG TAB PO SCH (08:55)
[2021-12-13] MEDS: ASPIRIN 81 MG CHEW TAB PO SCH (08:55)
[2021-12-13] MEDS: HYDROCHLOROTHIAZIDE 25 MG TAB PO SCH (08:56)
[2021-12-13] MEDS: METFORMIN HCL 500 MG TAB PO SCH (08:56)
[2021-12-13] MEDS: GLIPIZIDE 5 MG TAB PO SCH (08:56)
[2021-12-13] MEDS: GABAPENTIN 300 MG CAP PO SCH (08:56)
[2021-12-13] MEDS: ENALAPRIL MALEATE 5 MG TAB PO SCH (08:57)
[2021-12-13] MEDS: INSULIN REGULAR, HUMAN 100 UNIT/1 ML SQ SCH (09:22)
[2021-12-14] MEDS ORDERED: SIMVASTATIN 20 MG TAB PO SCH (21:00)
== END 2021-12-13 11:30 | disposition home or self-care (01) ==
LOC: ER 18:24 → INTOOBSV 21:38 → ERHOLD 21:38 → MED/SURG 12-12 08:50
PROVIDERS: ADMIT Internal Medicine; ATTEND Internal Medicine
DX: A41.9 Sepsis, unspecified organism (principal); N39.0 Urinary tract infection, site not specified; I10 Essential (primary) hypertension; J44.9 Chronic obstructive pulmonary disease, unspecified; E78.5 Hyperlipidemia, unspecified; E11.9 Type 2 diabetes mellitus without complications; Z88.5 Allergy status to narcotic agent; Z88.2 Allergy status to sulfonamides; G45.9 Transient cerebral ischemic attack, unspecified; Z20.822 Contact with and (suspected) exposure to COVID-19
CPT/HCPCS: 36415 ×3; 71045; 80048; 80053 ×2; 81001; 82550; 82553; 82948 ×2; 83605; 84484; 85025 ×3; 87040; 87086; 93005; 94799 ×2; 97116; 97139; 97161; 99285; G0378 ×3; J0696; J1817; J2185 ×2; J7030 ×2; J7050 ×2; U0002

== ENCOUNTER 2024-05-10 17:55 | Inpatient (IN) | payer MEDICARE ==
[~2024-05-10] VITALS: Ht 160 cm; Wt 101.2 kg
[~2024-05-10 17:55] MED LIST changes: -ASPIR 8181 MG; +ASPIR 8181 MG PO
[2024-05-10 18:33] LABS: BASOPHILS # (AUTO) 0.1 (0.0-0.1); BASOPHILS % 0.4 % (0.0-1.0); EOSINOPHILS # (AUTO) 0.1 (0.0-0.4); EOSINOPHILS % 0.5 % (0.0-6.0); HEMATOCRIT 45.3 % (34.2-44.1); HEMOGLOBIN 14.6 g/dL (12.0-16.0); LYMPHOCYTES # (AUTO) 1.4 (1.0-3.2); LYMPHOCYTES % 6.6 % (18.0-39.1); MEAN CORPUSCULAR HEMOGLOBIN 28.1 pg (28-32); MEAN CORPUSCULAR HGB CONC 32.2 g/dL (31-35); MEAN CORPUSCULAR VOLUME 87.1 fL (81-99); MONOCYTES % 4.7 % (4.4-11.3); NEUTROPHILS # (AUTO) 18.6 (2.1-6.9); NEUTROPHILS % 87.3 % (38.7-80.0); PLATELET COUNT 331 x10e3/uL (140-360); RED CELL DISTRIBUTION WIDTH 14.8 % (11.7-14.4); WHITE BLOOD COUNT 21.27 x10e3/uL (4.8-10.8)
[2024-05-10] MEDS: SODIUM CHLORIDE 0.9% 1000ML 1,000 ML IV STA (18:42)
[2024-05-10] MEDS: ACETAMINOPHEN 325 MG TAB PO STA (18:43)
[2024-05-10 18:52] LABS: ALANINE AMINOTRANSFERASE 13 IU/L (0-55); ALBUMIN/GLOBULIN RATIO 1.1 (0.8-2.0); ALKALINE PHOSPHATASE 75 IU/L (40-150); ANION GAP 17.4 mmol/L (8-16); BILIRUBIN,TOTAL 0.3 mg/dL (0.2-1.2); BLOOD UREA NITROGEN 22 mg/dL (7-26); BUN/CREATININE RATIO 23 (6-25); CALCIUM 10.4 mg/dL (8.4-10.2); CARBON DIOXIDE 26 mmol/L (22-29); CHLORIDE 99 mmol/L (98-107); CREATINE KINASE 57 IU/L (29-168); CREATININE, SERUM 0.97 mg/dL (0.57-1.11); EST GLOMERULAR FILTRATION RATE 59 ML/MIN (>=60); GLUCOSE 208 mg/dL (74-118); POTASSIUM 4.4 mmol/L (3.5-5.1); SODIUM 138 mmol/L (136-145); TOTAL PROTEIN 7.6 g/dL (6.5-8.1)
[2024-05-10 19:10] VITALS: TEMP 97.7
[2024-05-10 19:11] LABS: TROPONIN I < 0.05 ng/mL (0.0-0.40)
[2024-05-10 19:13] LABS: B-TYPE NATRIURETIC PEPTIDE2 15.9 pg/mL (0-100)
[2024-05-10 19:19] LABS: ABG HCO3 26 mmol/L (22-26); ABG PCO2 39 mmHg (35-45); ABG PH 7.43 (7.35-7.45); ABG PO2 73 mmHg (80-105); ABG TCO2 27
[2024-05-10 19:38] VITALS: PULSE 84; RESP 18
[2024-05-10] MEDS ORDERED: ONDANSETRON HCL INJ 2MG/ML 2ML 2 MG/ML VIAL IV PRN ×2 (19:45→20:45)
[2024-05-10] MEDS ORDERED: Morphine 4mg INJECTION 4 MG/ML INJ IV PRN (19:45)
[2024-05-10 20:13] VITALS: PULSE 89; RESP 20; O2SAT 98
[2024-05-10] MEDS ORDERED: ACETAMINOPHEN 325 MG TAB PO PRN (20:45)
[2024-05-10] MEDS ORDERED: LISINOPRIL20 MG PO (20:59)
[2024-05-10] MEDS ORDERED: MEMANTINE HCL10 MG PO (20:59)
[2024-05-10] MEDS ORDERED: GEMTESA75 MG PO (20:59)
[2024-05-10] MEDS ORDERED: METFORMIN HCL1000 MG PO (20:59)
[2024-05-10] MEDS ORDERED: TRESIBA FL100 UNIT/1 SC (21:02)
[2024-05-10 21:11] VITALS: BP 115/56; PULSE 80; RESP 17; TEMP 99.2; O2SAT 99
[2024-05-10 21:15] VITALS: BP 115/56; PULSE 80; RESP 17; TEMP 99.2; O2SAT 99
[2024-05-10] MEDS ORDERED: DEXTROSE 50% SYRINGE 50 ML IV PRN (21:30)
[2024-05-10] MEDS: INSULIN LISPRO 100 UNIT/1 ML 3ML VIAL SQ SCH (22:42)
[2024-05-10] MEDS: SODIUM CHLORIDE 0.9% 1000ML 1,000 ML IV SCH (22:42)
[2024-05-11] VITALS (11 sets, daily range): BP systolic 105–150; BP diastolic 46–55; PULSE 70–84; RESP 18–21; TEMP 97.3–98.8; O2SAT 93–100
[2024-05-11] MEDS ORDERED: ACETAMINOPHEN 325 MG TAB PO SCH
[2024-05-11] MEDS ORDERED: ALBUTEROL/IPRATROPIUM 3 ML NEB NEB PRN (01:15)
[2024-05-11] MEDS ORDERED: POTASSIUM CHLORIDE 20 MEQ TAB CR PO PRN (01:15)
[2024-05-11] MEDS ORDERED: BENZONATATE 100 MG CAP PO PRN (01:15)
[2024-05-11] MEDS ORDERED: DOCUSATE SODIUM 100 MG CAP PO PRN (01:15)
[2024-05-11] MEDS ORDERED: LIDOCAINE 4% PATCH TP PRN (01:15)
[2024-05-11] MEDS ORDERED: SIMETHICONE 80 MG CHEW PO PRN (01:15)
[2024-05-11] MEDS ORDERED: DEXTROSE 50% SYRINGE 50 ML IV PRN (01:15)
[2024-05-11] MEDS ORDERED: DIPHENHYDRAMINE HCL 25 MG CAP PO PRN (01:15)
[2024-05-11] MEDS ORDERED: HYDRALAZINE HCL 20 MG/ML VIAL IV PRN (01:15)
[2024-05-11] MEDS ORDERED: TRAMADOL HCL 50 MG TAB PO PRN (01:15)
[2024-05-11] MEDS ORDERED: MELATONIN 5 MG TABLET PO PRN (01:15)
[2024-05-11 05:50] LABS: BASOPHILS # (AUTO) 0.1 (0.0-0.1); BASOPHILS % 0.3 % (0.0-1.0); EOSINOPHILS # (AUTO) 0.2 (0.0-0.4); EOSINOPHILS % 0.8 % (0.0-6.0); HEMATOCRIT 38.1 % (34.2-44.1); HEMOGLOBIN 11.6 g/dL (12.0-16.0); LYMPHOCYTES # (AUTO) 2.9 (1.0-3.2); MEAN CORPUSCULAR HEMOGLOBIN 27.9 pg (28-32); MEAN CORPUSCULAR HGB CONC 30.4 g/dL (31-35); MEAN CORPUSCULAR VOLUME 91.6 fL (81-99); MONOCYTES # (AUTO) 1.1 (0.2-0.8); MONOCYTES % 5.3 % (4.4-11.3); NEUTROPHILS # (AUTO) 16.5 (2.1-6.9); NEUTROPHILS % 79.2 % (38.7-80.0); PLATELET COUNT 255 x10e3/uL (140-360); RED BLOOD COUNT 4.16 x10e6/uL (3.6-5.1); WHITE BLOOD COUNT 20.88 x10e3/uL (4.8-10.8)
[2024-05-11 06:32] LABS: ALBUMIN 3.1 g/dL (3.5-5.0); ALBUMIN/GLOBULIN RATIO 1.2 (0.8-2.0); ANION GAP 13.8 mmol/L (8-16); BILIRUBIN,TOTAL 0.4 mg/dL (0.2-1.2); CREATININE, SERUM 0.92 mg/dL (0.57-1.11); POTASSIUM 3.8 mmol/L (3.5-5.1); TOTAL PROTEIN 5.7 g/dL (6.5-8.1)
[2024-05-11 07:27] LABS: TROPONIN I 0.006 ng/mL (0-0.300)
[2024-05-11 07:29] LABS: BILIRUBIN,URINE NEGATIVE (NEGATIVE); CLARITY,URINE CLEAR (CLEAR); COLOR,URINE YELLOW (YELLOW); GLUCOSE, URINE NEGATIVE (NEGATIVE); KETONES,URINE NEGATIVE (NEGATIVE); LEUKOCYTE ESTERASE ,URINE NEGATIVE (NEGATIVE); NITRITE,URINE NEGATIVE (NEGATIVE); PH,URINE 5.5 (5 - 7); PROTEIN,URINE DIPSTICK NEGATIVE (NEGATIVE); URINE UROBILINOGEN 0.2 mg/dL (0.2 - 1)
[2024-05-11 07:46] LABS: BACTERIA,URINE MODERATE /HPF; EPITHELIAL CELLS,URINE FEW /LPF; RBC,URINE 0-5 /HPF (0-5); WBC,URINE (MAN) 0-5 /HPF (0-5)
[2024-05-11 07:58] LABS: ABG HCO3 26 mmol/L (22-26); ABG PCO2 39 mmHg (35-45); ABG PH 7.43 (7.35-7.45); ABG PO2 73 mmHg (80-105); ABG TCO2 27
[2024-05-11] MEDS: PANTOPRAZOLE SOD 40 MG TABEC PO SCH (08:37)
[2024-05-11] MEDS: METHYLPREDNISOLONE SOD SUCC 40 MG/ML VIAL 1ML IV SCH ×2 (08:37→21:51)
[2024-05-11] MEDS: BUDESONIDE/FORMOTEROL 160/4.5MCG INHALER INH SCH (09:00)
[2024-05-11 10:28] LABS: LYMPHOCYTES % (MANUAL) 4 % (19-48); MONOCYTES % (MANUAL) 4 % (3.4-9.0); NEUTROPHILS % (MANUAL) 88 % (40-74); PLATELET ESTIMATE ADEQUATE; PLATELET MORPHOLOGY COMMENT NORMAL; RBC MORPHOLOGY COMMENT NORMAL; REACTIVE LYMPHOCYTES 4
[2024-05-11] MEDS: ALBUTEROL/IPRATROPIUM 3 ML NEB NEB SCH (10:35)
[2024-05-11 14:40] LABS: TROPONIN I 0.009 ng/mL (0-0.300)
[2024-05-11] MEDS: ENOXAPARIN SOD INJ 40 MG/0.4 ML SYR SC SCH (16:49)
[2024-05-11] MEDS: SIMVASTATIN 20 MG TAB PO SCH (21:51)
[2024-05-11] MEDS: INSULIN GLARGINE 100 UNITS/ML VIAL SQ SCH (22:03)
[2024-05-12] VITALS (11 sets, daily range): BP systolic 128–155; BP diastolic 51–75; PULSE 68–85; RESP 18–20; TEMP 97.3–98.5; O2SAT 95–100
[2024-05-12 07:54] LABS: BASOPHILS % 0.1 % (0.0-1.0); HEMATOCRIT 39.2 % (34.2-44.1); HEMOGLOBIN 12.7 g/dL (12.0-16.0); LYMPHOCYTES # (AUTO) 0.8 (1.0-3.2); MEAN CORPUSCULAR HEMOGLOBIN 27.9 pg (28-32); MEAN CORPUSCULAR HGB CONC 32.4 g/dL (31-35); MONOCYTES # (AUTO) 0.3 (0.2-0.8); MONOCYTES % 1.8 % (4.4-11.3); NEUTROPHILS # (AUTO) 14.7 (2.1-6.9); NEUTROPHILS % 92.4 % (38.7-80.0); PLATELET COUNT 296 x10e3/uL (140-360); RED BLOOD COUNT 4.56 x10e6/uL (3.6-5.1); RED CELL DISTRIBUTION WIDTH 14.5 % (11.7-14.4); WHITE BLOOD COUNT 15.93 x10e3/uL (4.8-10.8)
[2024-05-12 08:21] LABS: ANION GAP 16.1 mmol/L (8-16); CALCIUM 9.6 mg/dL (8.4-10.2); CREATININE, SERUM 0.91 mg/dL (0.57-1.11); POTASSIUM 4.1 mmol/L (3.5-5.1)
[2024-05-12] MEDS: OXYBUTYNIN CHLORIDE XL 5 MG TAB PO SCH (09:09)
[2024-05-12] MEDS: MEMANTINE 10 MG TAB PO SCH ×2 (09:09→21:39)
[2024-05-12] MEDS: METHYLPREDNISOLONE SOD SUCC 40 MG/ML VIAL 1ML IV SCH (10:38)
[2024-05-12] MEDS: ALBUTEROL/IPRATROPIUM 3 ML NEB ONE (11:59)
[2024-05-13] VITALS (8 sets, daily range): BP systolic 131–147; BP diastolic 61–67; PULSE 65–78; RESP 18–22; TEMP 97.6–98.2; O2SAT 96–100
[2024-05-13 06:03] LABS: BASOPHILS % 0.3 % (0.0-1.0); EOSINOPHILS % 0.2 % (0.0-6.0); HEMATOCRIT 37.1 % (34.2-44.1); HEMOGLOBIN 11.9 g/dL (12.0-16.0); LYMPHOCYTES # (AUTO) 2.5 (1.0-3.2); LYMPHOCYTES % 20.3 % (18.0-39.1); MEAN CORPUSCULAR HEMOGLOBIN 27.8 pg (28-32); MEAN CORPUSCULAR HGB CONC 32.1 g/dL (31-35); MEAN CORPUSCULAR VOLUME 86.7 fL (81-99); MONOCYTES # (AUTO) 0.7 (0.2-0.8); MONOCYTES % 5.3 % (4.4-11.3); NEUTROPHILS % 73.3 % (38.7-80.0); PLATELET COUNT 297 x10e3/uL (140-360); RED BLOOD COUNT 4.28 x10e6/uL (3.6-5.1); RED CELL DISTRIBUTION WIDTH 14.6 % (11.7-14.4); WHITE BLOOD COUNT 12.23 x10e3/uL (4.8-10.8)
[2024-05-13 06:31] LABS: ANION GAP 12.9 mmol/L (8-16); CREATININE, SERUM 0.82 mg/dL (0.57-1.11); POTASSIUM 3.9 mmol/L (3.5-5.1)
[2024-05-13] MEDS ORDERED: METHYLPREDNISOLONE SOD SUCC 40 MG/ML VIAL 1ML IV SCH (09:00)
[2024-05-13] MEDS ORDERED: MEMANTINE PO (15:37)
[2024-05-13] MEDS ORDERED: ONDANSETRON HCL 4 MG ORAL DISINTEGRATING TAB PO PRN (16:00)
[2024-05-14] MEDS ORDERED: AZITHROMYCIN 250 MG TAB PO SCH (09:00)
== END 2024-05-13 17:16 | disposition home or self-care (01) | DRG 190 ==
LOC: ER 18:04 → ERHOLD 19:43 → ER 20:15 → MED/SURG2 21:03
PROVIDERS: ADMIT Internal Medicine; ATTEND Internal Medicine
PROC: 4A133R1 Monitoring of Arterial Saturation, Peripheral, Percutaneous Approach (ICD-10-PCS; principal; 2024-05-10)
DX: J44.1 Chronic obstructive pulmonary disease with (acute) exacerbation (principal); J18.9 Pneumonia, unspecified organism; J44.0 Chronic obstructive pulmonary disease with (acute) lower respiratory infection; Z99.81 Dependence on supplemental oxygen; E11.9 Type 2 diabetes mellitus without complications; I10 Essential (primary) hypertension; R09.02 Hypoxemia; E66.9 Obesity, unspecified; Z68.39 Body mass index [BMI] 39.0-39.9, adult; Z79.4 Long term (current) use of insulin; Z79.82 Long term (current) use of aspirin; Z79.51 Long term (current) use of inhaled steroids; Z79.84 Long term (current) use of oral hypoglycemic drugs; Z86.73 Personal history of transient ischemic attack (TIA), and cerebral infarction without residual deficits; Z87.440 Personal history of urinary (tract) infections; Z90.49 Acquired absence of other specified parts of digestive tract; Z88.2 Allergy status to sulfonamides; Z88.8 Allergy status to other drugs, medicaments and biological substances; Z83.3 Family history of diabetes mellitus; Z82.49 Family history of ischemic heart disease and other diseases of the circulatory system
CPT/HCPCS: 36415; 36600; 70450; 71045; 80048; 80053; 81001; 82550; 82805; 82948; 83605; 83690; 83735; 83880; 84484; 85025; 87040; 87086; 93005; 93306; 94640; 94664; 94799; 99285; J1650; J1815; J2543; J2919; J7030; J7050

== ENCOUNTER 2024-10-16 18:32 | Inpatient (IN) | payer MEDICARE ==
[~2024-10-16] VITALS: Ht 160 cm; Wt 97.5 kg
[~2024-10-16 18:32] MED LIST changes: +GEMTESA75 MG PO; +LISINOPRIL20 MG PO; +MEMANTINE HCL10 MG PO; +MEMANTINE PO; +METFORMIN HCL1000 MG PO; +TRESIBA FL100 UNIT/1 SC
[2024-10-16] MEDS: ACETAMINOPHEN 325 MG TAB PO STA (19:21)
[2024-10-16 19:24] LABS: BASOPHILS # (AUTO) 0.1 (0.0-0.1); BASOPHILS % 0.3 % (0.0-1.0); EOSINOPHILS # (AUTO) 0.3 (0.0-0.4); EOSINOPHILS % 1.1 % (0.0-6.0); HEMATOCRIT 44.3 % (34.2-44.1); HEMOGLOBIN 14.4 g/dL (12.0-16.0); LYMPHOCYTES # (AUTO) 1.7 (1.0-3.2); LYMPHOCYTES % 5.7 % (18.0-39.1); MEAN CORPUSCULAR HEMOGLOBIN 27.8 pg (28-32); MEAN CORPUSCULAR HGB CONC 32.5 g/dL (31-35); MEAN CORPUSCULAR VOLUME 85.5 fL (81-99); MONOCYTES # (AUTO) 1.5 (0.2-0.8); MONOCYTES % 5.3 % (4.4-11.3); NEUTROPHILS # (AUTO) 25.3 (2.1-6.9); NEUTROPHILS % 86.8 % (38.7-80.0); PLATELET COUNT 296 x10e3/uL (140-360); RED BLOOD COUNT 5.18 x10e6/uL (3.6-5.1); RED CELL DISTRIBUTION WIDTH 14.6 % (11.7-14.4); WHITE BLOOD COUNT 29.17 x10e3/uL (4.8-10.8)
[2024-10-16 19:41] LABS: ALBUMIN 3.5 g/dL (3.5-5.0); ANION GAP 18.7 mmol/L (8-16); BILIRUBIN,TOTAL 0.4 mg/dL (0.2-1.2); CALCIUM 9.5 mg/dL (8.4-10.2); CREATININE, SERUM 1.06 mg/dL (0.57-1.11); POTASSIUM 4.7 mmol/L (3.5-5.1); TOTAL PROTEIN 7.1 g/dL (6.5-8.1)
[2024-10-16 19:47] LABS: TROPONIN I 0.002 ng/mL (0-0.300)
[2024-10-16] MEDS ORDERED: IOPAMIDOL 370 MG/ML 100 ML INFUS..BTL INJ ONE (20:02)
[2024-10-16] MEDS: SODIUM CHLORIDE 0.9% 1000ML 1,000 ML IV STA (20:10)
[2024-10-16 21:33] LABS: CORONAVIRUS COVID-19 AG NEGATIVE (NEGATIVE); INFLUENZA A AG NEGATIVE (NEGATIVE); INFLUENZA B AG NEGATIVE (NEGATIVE)
[2024-10-16] MEDS ORDERED: Morphine 2mg Syringe 2 MG/ML SYR IV PRN (22:00)
[2024-10-16] MEDS ORDERED: ONDANSETRON HCL INJ 2MG/ML 2ML 2 MG/ML VIAL IV PRN (22:00)
[2024-10-17] VITALS (11 sets, daily range): BP systolic 100–122; BP diastolic 54–93; PULSE 63–93; RESP 16–22; TEMP 97.5–98.3; O2SAT 94–100
[2024-10-17] MEDS: SODIUM CHLORIDE 0.9% 1000ML 1,000 ML IV SCH (00:31)
[2024-10-17 01:48] LABS: BILIRUBIN,URINE NEGATIVE (NEGATIVE); CLARITY,URINE SL CLOUDY (CLEAR); COLOR,URINE YELLOW (YELLOW); GLUCOSE, URINE 500 (NEGATIVE); KETONES,URINE NEGATIVE (NEGATIVE); LEUKOCYTE ESTERASE ,URINE TRACE (NEGATIVE); NITRITE,URINE POSITIVE (NEGATIVE); PH,URINE 7 (5 - 7); PROTEIN,URINE DIPSTICK 1+ (NEGATIVE); URINE UROBILINOGEN 1 mg/dL (0.2 - 1); WBC,URINE (MAN) >50 /HPF (0-5)
[2024-10-17 01:49] LABS: BACTERIA,URINE MANY /HPF; EPITHELIAL CELLS,URINE FEW /LPF; TRANSITIONAL EPI CELLS,URINE FEW
[2024-10-17 03:54] LABS: TROPONIN I 0.003 ng/mL (0-0.300)
[2024-10-17 04:27] LABS: BASOPHILS # (AUTO) 0.1 (0.0-0.1); BASOPHILS % 0.4 % (0.0-1.0); EOSINOPHILS # (AUTO) 0.7 (0.0-0.4); EOSINOPHILS % 2.5 % (0.0-6.0); HEMATOCRIT 41.1 % (34.2-44.1); HEMOGLOBIN 12.7 g/dL (12.0-16.0); LYMPHOCYTES # (AUTO) 2.6 (1.0-3.2); MEAN CORPUSCULAR HEMOGLOBIN 27.5 pg (28-32); MEAN CORPUSCULAR HGB CONC 30.9 g/dL (31-35); MONOCYTES # (AUTO) 1.5 (0.2-0.8); MONOCYTES % 5.9 % (4.4-11.3); NEUTROPHILS # (AUTO) 20.7 (2.1-6.9); NEUTROPHILS % 80.6 % (38.7-80.0); PLATELET COUNT 260 x10e3/uL (140-360); RED BLOOD COUNT 4.62 x10e6/uL (3.6-5.1); RED CELL DISTRIBUTION WIDTH 14.9 % (11.7-14.4); WHITE BLOOD COUNT 25.71 x10e3/uL (4.8-10.8)
[2024-10-17 04:41] LABS: ANION GAP 16.5 mmol/L (8-16); BILIRUBIN,TOTAL 0.5 mg/dL (0.2-1.2); CALCIUM 8.8 mg/dL (8.4-10.2); CREATININE, SERUM 1.06 mg/dL (0.57-1.11); POTASSIUM 4.5 mmol/L (3.5-5.1); TOTAL PROTEIN 6.1 g/dL (6.5-8.1)
[2024-10-17] MEDS ORDERED: ACETAMINOPHEN 325 MG TAB PO PRN (08:30)
[2024-10-17] MEDS ORDERED: ALBUTEROL/IPRATROPIUM 3 ML NEB NEB PRN (08:30)
[2024-10-17] MEDS ORDERED: DEXTROSE 50% SYRINGE 50 ML IV PRN (08:45)
[2024-10-17] MEDS ORDERED: SIMVASTATIN 40 MG TAB PO SCH (09:00)
[2024-10-17] MEDS: BUDESONIDE/FORMOTEROL 160/4.5MCG INHALER INH SCH (09:13)
[2024-10-17] MEDS: CRESTOR 10MG PO SCH (10:08)
[2024-10-17] MEDS: LISINOPRIL 20 MG TAB PO SCH (10:10)
[2024-10-17] MEDS: INSULIN LISPRO 100 UNIT/1 ML 3ML VIAL SQ SCH (12:27)
[2024-10-17 14:06] LABS: CREATINE KINASE 22 IU/L (29-168)
[2024-10-17 14:16] LABS: TROPONIN I < 0.001 ng/mL (0-0.300)
[2024-10-17] MEDS: GABAPENTIN 300 MG CAP PO SCH (15:24)
[2024-10-17] MEDS: METFORMIN HCL 500 MG TAB PO SCH (16:59)
[2024-10-17] MEDS: NON-FORMULARY MEDICATION (Insulin Degludec (Tresiba Flextouch U-100) 15 UNITS) SQ SCH (17:00)
[2024-10-17] MEDS ORDERED: IOPAMIDOL 370 MG/ML 100 ML INFUS..BTL INJ ONE (19:11)
[2024-10-18] VITALS (12 sets, daily range): BP systolic 106–127; BP diastolic 41–92; PULSE 63–88; RESP 16–20; TEMP 97.9–98.5; O2SAT 95–100
[2024-10-18 05:29] LABS: BASOPHILS # (AUTO) 0.1 (0.0-0.1); BASOPHILS % 0.4 % (0.0-1.0); EOSINOPHILS # (AUTO) 0.8 (0.0-0.4); HEMATOCRIT 39.5 % (34.2-44.1); HEMOGLOBIN 12.3 g/dL (12.0-16.0); LYMPHOCYTES # (AUTO) 2.1 (1.0-3.2); LYMPHOCYTES % 10.9 % (18.0-39.1); MEAN CORPUSCULAR HEMOGLOBIN 27.4 pg (28-32); MEAN CORPUSCULAR HGB CONC 31.1 g/dL (31-35); MONOCYTES # (AUTO) 1.1 (0.2-0.8); MONOCYTES % 5.5 % (4.4-11.3); NEUTROPHILS # (AUTO) 15.2 (2.1-6.9); NEUTROPHILS % 78.6 % (38.7-80.0); PLATELET COUNT 221 x10e3/uL (140-360); RED BLOOD COUNT 4.49 x10e6/uL (3.6-5.1); RED CELL DISTRIBUTION WIDTH 14.7 % (11.7-14.4); WHITE BLOOD COUNT 19.33 x10e3/uL (4.8-10.8)
[2024-10-18 05:52] LABS: ALBUMIN 2.8 g/dL (3.5-5.0); ALBUMIN/GLOBULIN RATIO 0.9 (0.8-2.0); ANION GAP 15.1 mmol/L (8-16); BILIRUBIN,TOTAL 0.4 mg/dL (0.2-1.2); CALCIUM 8.7 mg/dL (8.4-10.2); CREATININE, SERUM 0.9 mg/dL (0.57-1.11); POTASSIUM 4.1 mmol/L (3.5-5.1)
[2024-10-18] MEDS: OXYBUTYNIN CHLORIDE XL 5 MG TAB PO SCH (09:12)
[2024-10-18] MEDS: ASPIRIN 81 MG CHEW TAB PO SCH (09:12)
[2024-10-18] MEDS: PANTOPRAZOLE SOD 40 MG TABEC PO SCH (09:13)
[2024-10-19 03:00] VITALS: BP 138/48; PULSE 75; RESP 18; TEMP 97.8; O2SAT 95
[2024-10-19 05:35] LABS: BASOPHILS # (AUTO) 0.1 (0.0-0.1); BASOPHILS % 0.7 % (0.0-1.0); EOSINOPHILS # (AUTO) 0.7 (0.0-0.4); EOSINOPHILS % 4.8 % (0.0-6.0); HEMATOCRIT 42.7 % (34.2-44.1); HEMOGLOBIN 13.6 g/dL (12.0-16.0); LYMPHOCYTES # (AUTO) 2.4 (1.0-3.2); LYMPHOCYTES % 17.4 % (18.0-39.1); MEAN CORPUSCULAR HEMOGLOBIN 27.8 pg (28-32); MEAN CORPUSCULAR HGB CONC 31.9 g/dL (31-35); MEAN CORPUSCULAR VOLUME 87.3 fL (81-99); MONOCYTES # (AUTO) 0.9 (0.2-0.8); MONOCYTES % 6.4 % (4.4-11.3); NEUTROPHILS # (AUTO) 9.5 (2.1-6.9); NEUTROPHILS % 70.4 % (38.7-80.0); PLATELET COUNT 233 x10e3/uL (140-360); RED BLOOD COUNT 4.89 x10e6/uL (3.6-5.1); RED CELL DISTRIBUTION WIDTH 14.9 % (11.7-14.4); WHITE BLOOD COUNT 13.47 x10e3/uL (4.8-10.8)
[2024-10-19 06:10] LABS: ANION GAP 16.5 mmol/L (8-16); CALCIUM 9.2 mg/dL (8.4-10.2); CREATININE, SERUM 0.84 mg/dL (0.57-1.11); POTASSIUM 4.5 mmol/L (3.5-5.1)
[2024-10-19 06:18] VITALS: PULSE 79; RESP 20; O2SAT 96
[2024-10-19 08:00] VITALS: BP_SYST 112; BP_SYST 138; BP_DIAS 48; BP_DIAS 68; PULSE 75; PULSE 79; RESP 20; TEMP 97.8; O2SAT 95; O2SAT 96
[2024-10-19 08:30] VITALS: BP 138/61
[2024-10-19] MEDS ORDERED: CIPRO500 MG PO (10:45)
[2024-10-19] MEDS ORDERED: MUCINEX DM ER1 EACH PO (10:45)
== END 2024-10-19 12:35 | disposition home or self-care (01) | DRG 871 ==
LOC: ER 18:40 → ERHOLD 21:58 → MED/SURG 10-17 09:34
PROVIDERS: ADMIT Internal Medicine; ATTEND Internal Medicine
PROC: 3E0333Z Introduction of Anti-inflammatory into Peripheral Vein, Percutaneous Approach (ICD-10-PCS; principal; 2024-10-16)
DX: A41.9 Sepsis, unspecified organism (principal); J69.0 Pneumonitis due to inhalation of food and vomit; J96.21 Acute and chronic respiratory failure with hypoxia; J44.1 Chronic obstructive pulmonary disease with (acute) exacerbation; N39.0 Urinary tract infection, site not specified; R13.10 Dysphagia, unspecified; Z99.81 Dependence on supplemental oxygen; E11.22 Type 2 diabetes mellitus with diabetic chronic kidney disease; I12.9 Hypertensive chronic kidney disease with stage 1 through stage 4 chronic kidney disease, or unspecified chronic kidney disease; N18.30 Chronic kidney disease, stage 3 unspecified; D63.1 Anemia in chronic kidney disease; R53.81 Other malaise; M19.90 Unspecified osteoarthritis, unspecified site; Z11.52 Encounter for screening for COVID-19; Z79.82 Long term (current) use of aspirin; Z79.4 Long term (current) use of insulin; Z79.84 Long term (current) use of oral hypoglycemic drugs; Z79.51 Long term (current) use of inhaled steroids; Z90.49 Acquired absence of other specified parts of digestive tract; Z86.73 Personal history of transient ischemic attack (TIA), and cerebral infarction without residual deficits; Z88.2 Allergy status to sulfonamides; Z88.8 Allergy status to other drugs, medicaments and biological substances; Z87.891 Personal history of nicotine dependence; Z83.3 Family history of diabetes mellitus; Z82.49 Family history of ischemic heart disease and other diseases of the circulatory system
CPT/HCPCS: 36415; 71045; 71260; 74177; 74230; 80048; 80053; 81001; 82550; 82948; 83036; 83605; 83690; 83880; 84443; 84484; 85025; 87040; 87086; 93005; 93306; 94799; 96372; 99285; J2470; J2543; J7030; J7050; Q9967

== ENCOUNTER 2024-11-27 14:29 | Inpatient (IN) | payer MEDICARE ==
[~2024-11-27] VITALS: Ht 160 cm; Wt 100.7 kg
[2024-11-27] VITALS (11 sets, daily range): BP systolic 97–124; BP diastolic 45–73; PULSE 68–98; RESP 13–26; TEMP 97.9–102.4; O2SAT 92–97
[~2024-11-27 14:29] MED LIST changes: +CIPRO500 MG PO; +MUCINEX DM ER1 EACH PO
[2024-11-27 15:10] LABS: BASOPHILS # (AUTO) 0.1 (0.0-0.1); BASOPHILS % 0.4 % (0.0-1.0); EOSINOPHILS # (AUTO) 0.3 (0.0-0.4); EOSINOPHILS % 2.5 % (0.0-6.0); HEMATOCRIT 42.7 % (34.2-44.1); HEMOGLOBIN 13.9 g/dL (12.0-16.0); LYMPHOCYTES # (AUTO) 0.5 (1.0-3.2); LYMPHOCYTES % 3.7 % (18.0-39.1); MEAN CORPUSCULAR HEMOGLOBIN 27.6 pg (28-32); MEAN CORPUSCULAR HGB CONC 32.6 g/dL (31-35); MEAN CORPUSCULAR VOLUME 84.7 fL (81-99); MONOCYTES # (AUTO) 0.7 (0.2-0.8); MONOCYTES % 5.5 % (4.4-11.3); NEUTROPHILS # (AUTO) 11.4 (2.1-6.9); NEUTROPHILS % 87.4 % (38.7-80.0); PLATELET COUNT 266 x10e3/uL (140-360); RED BLOOD COUNT 5.04 x10e6/uL (3.6-5.1); RED CELL DISTRIBUTION WIDTH 15.5 % (11.7-14.4); WHITE BLOOD COUNT 12.98 x10e3/uL (4.8-10.8)
[2024-11-27 15:11] LABS: BILIRUBIN,URINE NEGATIVE (NEGATIVE); CLARITY,URINE CLEAR (CLEAR); COLOR,URINE YELLOW (YELLOW); GLUCOSE, URINE NEGATIVE (NEGATIVE); KETONES,URINE NEGATIVE (NEGATIVE); LEUKOCYTE ESTERASE ,URINE NEGATIVE (NEGATIVE); NITRITE,URINE NEGATIVE (NEGATIVE); PH,URINE 6.5 (5 - 7); PROTEIN,URINE DIPSTICK 2+ (NEGATIVE); URINE UROBILINOGEN 4 mg/dL (0.2 - 1)
[2024-11-27 15:14] LABS: INR 0.83; PROTHROMBIN TIME 12.2 seconds (11.9-14.5)
[2024-11-27 15:15] LABS: PARTIAL THROMBOPLASTIN TIME 24.3 seconds (23.8-35.5)
[2024-11-27 15:24] LABS: ALBUMIN 3.7 g/dL (3.5-5.0); ALBUMIN/GLOBULIN RATIO 0.9 (0.8-2.0); ANION GAP 19.7 mmol/L (8-16); BILIRUBIN,TOTAL 0.3 mg/dL (0.2-1.2); CALCIUM 9.5 mg/dL (8.4-10.2); CREATININE, SERUM 1.03 mg/dL (0.57-1.11); POTASSIUM 4.7 mmol/L (3.5-5.1); TOTAL PROTEIN 7.7 g/dL (6.5-8.1)
[2024-11-27] MEDS: ACETAMINOPHEN 1000 MG/100 ML IV ONE (15:26)
[2024-11-27] MEDS: SODIUM CHLORIDE 0.9% 1000ML 1,000 ML IV STA ×2 (15:26→16:06)
[2024-11-27 15:27] LABS: EPITHELIAL CELLS,URINE FEW /LPF; MUCUS,URINE FEW; RBC,URINE 0-5 /HPF (0-5); WBC,URINE (MAN) 0-5 /HPF (0-5)
[2024-11-27 15:30] LABS: TROPONIN I 0.004 ng/mL (0-0.300)
[2024-11-27] MEDS: INSULIN REGULAR, HUMAN 100 UNIT/1 ML SQ SCH (16:30)
[2024-11-27] MEDS ORDERED: ALBUTEROL SULF 0.083% NEB SOLN 3 ML NEB NEB SCH (16:30)
[2024-11-27] MEDS ORDERED: DEXTROSE 50% SYRINGE 50 ML IV PRN (16:30)
[2024-11-27 16:36] LABS: CORONAVIRUS COVID-19 AG NEGATIVE (NEGATIVE); INFLUENZA A AG NEGATIVE (NEGATIVE); INFLUENZA B AG NEGATIVE (NEGATIVE)
[2024-11-27] MEDS ORDERED: IPRATROPIUM BROMIDE 0.02% 2.5 ML NEB NEB PRN (18:00)
[2024-11-27] MEDS ORDERED: IPRATROPIUM BROMIDE 0.02% 2.5 ML NEB NEB SCH (18:00)
[2024-11-27] MEDS: SODIUM CHLORIDE 0.9% 1000ML 1,000 ML IV SCH (18:38)
[2024-11-27] MEDS: BUDESONIDE/FORMOTEROL 160/4.5MCG INHALER INH SCH (19:51)
[2024-11-27] MEDS ORDERED: ACETAMINOPHEN 1000 MG/100 ML IV PRN (20:00)
[2024-11-28] VITALS (21 sets, daily range): BP systolic 88–123; BP diastolic 37–104; PULSE 67–90; RESP 13–23; TEMP 97.6–98.5; O2SAT 91–100
[2024-11-28 00:58] LABS: TROPONIN I 0.002 ng/mL (0-0.300)
[2024-11-28 06:49] LABS: BASOPHILS % 0.4 % (0.0-1.0); EOSINOPHILS # (AUTO) 0.6 (0.0-0.4); EOSINOPHILS % 7.2 % (0.0-6.0); HEMATOCRIT 36.2 % (34.2-44.1); HEMOGLOBIN 11.8 g/dL (12.0-16.0); LYMPHOCYTES # (AUTO) 0.7 (1.0-3.2); MEAN CORPUSCULAR HEMOGLOBIN 27.6 pg (28-32); MEAN CORPUSCULAR HGB CONC 32.6 g/dL (31-35); MEAN CORPUSCULAR VOLUME 84.6 fL (81-99); MONOCYTES # (AUTO) 0.6 (0.2-0.8); MONOCYTES % 7.1 % (4.4-11.3); NEUTROPHILS # (AUTO) 6.3 (2.1-6.9); NEUTROPHILS % 76.1 % (38.7-80.0); PLATELET COUNT 200 x10e3/uL (140-360); RED BLOOD COUNT 4.28 x10e6/uL (3.6-5.1); RED CELL DISTRIBUTION WIDTH 15.7 % (11.7-14.4); WHITE BLOOD COUNT 8.22 x10e3/uL (4.8-10.8)
[2024-11-28 07:19] LABS: ALBUMIN 2.9 g/dL (3.5-5.0); ALBUMIN/GLOBULIN RATIO 0.9 (0.8-2.0); ANION GAP 14.1 mmol/L (8-16); BILIRUBIN,TOTAL 0.3 mg/dL (0.2-1.2); CALCIUM 8.6 mg/dL (8.4-10.2); CREATININE, SERUM 0.93 mg/dL (0.57-1.11); POTASSIUM 4.1 mmol/L (3.5-5.1); TOTAL PROTEIN 6.1 g/dL (6.5-8.1)
[2024-11-28 07:40] LABS: CREATINE KINASE 130 IU/L (29-168)
[2024-11-28 07:49] LABS: TROPONIN I < 0.001 ng/mL (0-0.300)
[2024-11-28] MEDS: OXYBUTYNIN CHLORIDE XL 5 MG TAB PO SCH (08:26)
[2024-11-28] MEDS: POTASSIUM CHLORIDE 20 MEQ TAB CR PO STA (08:27)
[2024-11-28] MEDS: GABAPENTIN 300 MG CAP PO SCH (14:27)
[2024-11-28] MEDS: GLIPIZIDE 5 MG TAB PO SCH (16:37)
[2024-11-28] MEDS: METFORMIN HCL 500 MG TAB PO SCH (16:37)
[2024-11-28] MEDS: SIMVASTATIN 20 MG TAB PO SCH (21:05)
[2024-11-29 04:30] VITALS: BP 100/53; PULSE 67; RESP 18; TEMP 98.3; O2SAT 96
[2024-11-29 05:44] LABS: BASOPHILS # (AUTO) 0.1 (0.0-0.1); BASOPHILS % 0.6 % (0.0-1.0); EOSINOPHILS # (AUTO) 0.8 (0.0-0.4); EOSINOPHILS % 8.6 % (0.0-6.0); HEMATOCRIT 36.6 % (34.2-44.1); LYMPHOCYTES # (AUTO) 1.5 (1.0-3.2); LYMPHOCYTES % 17.5 % (18.0-39.1); MEAN CORPUSCULAR HEMOGLOBIN 27.6 pg (28-32); MEAN CORPUSCULAR HGB CONC 32.8 g/dL (31-35); MEAN CORPUSCULAR VOLUME 84.1 fL (81-99); MONOCYTES # (AUTO) 0.7 (0.2-0.8); MONOCYTES % 8.3 % (4.4-11.3); NEUTROPHILS # (AUTO) 5.7 (2.1-6.9); NEUTROPHILS % 64.8 % (38.7-80.0); PLATELET COUNT 230 x10e3/uL (140-360); RED BLOOD COUNT 4.35 x10e6/uL (3.6-5.1); RED CELL DISTRIBUTION WIDTH 15.5 % (11.7-14.4); WHITE BLOOD COUNT 8.75 x10e3/uL (4.8-10.8)
[2024-11-29] MEDS: GUAIFENESIN 600MG/DEXTROMETHORPHAN 30MG TABSR PO PRN (05:46)
[2024-11-29 06:10] LABS: ANION GAP 15.1 mmol/L (8-16); CREATININE, SERUM 0.81 mg/dL (0.57-1.11); POTASSIUM 4.1 mmol/L (3.5-5.1)
[2024-11-29 07:31] VITALS: PULSE 68; RESP 18; O2SAT 96
[2024-11-29 07:49] VITALS: BP 115/57; PULSE 65; RESP 16; TEMP 98; O2SAT 97
[2024-11-29 08:18] VITALS: BP 115/57; PULSE 65; RESP 16; TEMP 98; O2SAT 97
[2024-11-29 09:22] VITALS: BP 115/57
[2024-11-29] MEDS: LISINOPRIL 10 MG TAB PO SCH (09:22)
[2024-11-29] MEDS: CEFDINIR 300 MG CAP PO SCH (16:09)
[2024-11-30] MEDS ORDERED: ASPIRIN 81 MG CHEW TAB PO SCH (09:00)
[2024-11-30] MEDS ORDERED: CEFDINIR300 MG PO (14:41)
[2024-12-05 11:29] LABS: ABG PH 7.49 (7.35-7.45)
== END 2024-11-29 18:33 | disposition home or self-care (01) | DRG 871 ==
LOC: ER 14:51 → ERHOLD 16:24 → ICU 18:01 → MED/SURG2 11-28 16:06
PROVIDERS: ADMIT Internal Medicine; ATTEND Internal Medicine
PROC: 4A133R1 Monitoring of Arterial Saturation, Peripheral, Percutaneous Approach (ICD-10-PCS; principal; 2024-11-27)
PROC: 3E0333Z Introduction of Anti-inflammatory into Peripheral Vein, Percutaneous Approach (ICD-10-PCS; 2024-11-27)
DX: A41.9 Sepsis, unspecified organism (principal); G93.41 Metabolic encephalopathy; J69.0 Pneumonitis due to inhalation of food and vomit; J44.1 Chronic obstructive pulmonary disease with (acute) exacerbation; R65.20 Severe sepsis without septic shock; R62.7 Adult failure to thrive; Z99.81 Dependence on supplemental oxygen; E11.9 Type 2 diabetes mellitus without complications; I10 Essential (primary) hypertension; D64.9 Anemia, unspecified; M19.90 Unspecified osteoarthritis, unspecified site; F01.50 Vascular dementia, unspecified severity, without behavioral disturbance, psychotic disturbance, mood disturbance, and anxiety; Z11.52 Encounter for screening for COVID-19; E66.9 Obesity, unspecified; Z68.39 Body mass index [BMI] 39.0-39.9, adult; Z79.82 Long term (current) use of aspirin; Z79.4 Long term (current) use of insulin; Z79.84 Long term (current) use of oral hypoglycemic drugs; Z79.51 Long term (current) use of inhaled steroids; Z86.73 Personal history of transient ischemic attack (TIA), and cerebral infarction without residual deficits; Z90.49 Acquired absence of other specified parts of digestive tract; Z87.440 Personal history of urinary (tract) infections; Z88.2 Allergy status to sulfonamides; Z88.5 Allergy status to narcotic agent; Z87.891 Personal history of nicotine dependence; Z83.3 Family history of diabetes mellitus; Z82.49 Family history of ischemic heart disease and other diseases of the circulatory system
CPT/HCPCS: 36415; 51700; 70450; 71045; 80048; 80053; 81001; 82550; 82805; 82948; 83605; 83880; 84484; 85025; 85610; 85730; 87040; 87086; 93005; 94664; 94799; 96372; 99252; 99284; J0696; J2543; J7030; J7050